=== PATIENT | male | born 1960 | race Caucasian/White ===

== ENCOUNTER 2020-12-31 18:24 | Emergency (ER) | payer SELFPAY ==
[2020-12-31 18:22] VITALS: BP 146/79; PULSE 82; RESP 16; TEMP 36.3; O2SAT 99
--- NOTE | 2020-12-31 19:09 | PC.NURSE ---
This RN walked on to floor to start shift. Was informed by admin secretary that pt in room 13 needed to use restroom. This RN entered room and witnessed pt sitting on edge of stretcher with seizure precautions in place. Pt stated take this IV out right now. My is going to come get [place]. I've also got to use the bathroom really bad. This RN took pts IV out and gave verbal directions to restroom. Pt ambulated to bathroom with steady gait, in no obvious distress. When pt was back in room, this RN educated pt of risks of leaving before seeing ED provider and the benefits of staying. Pt verbalized understanding and ambulated to waiting room to wait for ride.
== END 2020-12-31 19:29 | disposition left against medical advice (07) ==
LOC: ANHED 19:22
PROVIDERS: Emergency Provider Emergency Medicine
DX: R42 Dizziness and giddiness (principal)
CPT/HCPCS: 99199

== ENCOUNTER 2024-12-14 00:17 | Emergency (ER) | payer OTHER, SELFPAY ==
--- NOTE | ~2024-12-14 | CT_ITS ---
EXAMINATION: CT abdomen pelvis wo con DATE: 12/14/2024 01:11 INDICATION: Left flank pain TECHNIQUE: Computed tomography (CT) of the abdomen and pelvis was performed without intravenous contrast. The dose-length product was 632.32 mGy-cm. Automated exposure control and iterative reconstruction technique were employed. COMPARISON: 01/01/2006 FINDINGS: There are interstitial changes of the right middle lobe, likely chronic. Heart size normal. No significant pleural or pericardial effusion. The liver, spleen, pancreas, adrenal glands and right kidney are unremarkable. There is a 4.5 cm exophytic left renal cyst. There is focal renal arterial calcification. No renal stone. No ureteral stone or hydronephrosis. Gallbladder is present. Nonobstructive bowel gas pattern. Normal appendix. There is mild- moderate lower thoracic and lumbar spondylosis. There is severe osteoarthritis of the hips. There is levocurvature of the lumbar spine. Nonobstructive bowel gas pattern. No lymphadenopathy. No abnormal pelvic masses or fluid collections. IMPRESSION: 1. No acute abdominal abnormality. Reviewed, dictated and finalized at location O.
[2024-12-14 00:19] VITALS: BP 156/94; PULSE 77; RESP 18; TEMP 36.6; O2SAT 100
--- NOTE | 2024-12-14 00:35 | ED.MALEGU ---
HPI - Male Genitourinary General Chief complaint: Urogenital-Male <Lachelle Reyes APRN - Last Filed: 12/14/24 03:08> Stated complaint: L FLANK PAIN; HX OF KIDNEY STONES <Lachlele Reyes APRN - Last Filed: 12/14/24 03:08> Time Seen by Provider: 12/14/24 03:13 <Lachelle Reyes APRN - Last Filed: 12/14/24 03:08> History of Present Illness HPI Narrative: Patient is a 64-year-old male who presents with left flank pain that started approximately 5 hours ago. He reports the pain starts on his left side and goes down into his left groin. Patient sources a history of diabetes, high blood pressure, and kidney stones. He denies any urinary symptoms, recent fevers, diarrhea. Patient reports he does not take insulin, but takes metformin to treat his diabetes. <Lachelle Reyes APRN - Last Filed: 12/14/24 03:08> Related Data Home medications: Home Medications ?Medication ?Instructions ?Recorded ?Confirmed ?Last Taken ?Type Unable to Obtain Home Medications 12/31/20 12/31/20 Unknown History <Lachelle Reyes APRN - Last Filed: 12/14/24 03:08> Allergies/Adverse reactions: Allergies Allergy/AdvReac Type Severity Reaction Status Date / Time No Known Allergies Allergy Verified 12/31/20 18:33 <Lachelle Reyes APRN - Last Filed: 12/14/24 03:08> Review of Systems Review of Systems: All systems reviewed & are unremarkable except as noted in HPI and below <Lachelle Reyes APRN - Last Filed: 12/14/24 03:08> Exam Narrative: GENERAL: Well appearing, well-nourished, non-toxic, in acute distress d/t pain. HEAD: Normocephalic, atraumatic. NECK: Supple. No adenopathy, no masses. RESPIRATORY: Airway patent, respirations nonlabored. Clear to auscultation bilaterally, no rales, rhonchi, wheezing. CARDIOVASCULAR: Regular rate and rhythm without murmurs, rubs, or gallops. Peripheral pulses 2+ and equal bilaterally. + L CVA tenderness ABDOMINAL: Soft, LLQ tender, nondistended, no hepatosplenomegaly. Normoactive BS. MUSCULOSKELETAL: Moves all extremities. Strength/ROM intact without gross deformities. SKIN: Warm, dry, normal color. No rashes. NEURO: A&O X3. Speech clear. Cranial nerves II-XII intact. No ataxic movements. PSYCHIATRIC: Anxious. <Lachelle Reyes APRN - Last Filed: 12/14/24 03:08> Course DEAF/HARD OF HEARING SPECIALIST/PA Physician Supervision This visit was performed by both a physician and an APC. For this patient encounter, I reviewed the DEAF/HARD OF HEARING SPECIALIST or PA documentation, treatment plan, and medical decision making and had [id number] time with this patient. I performed all aspects of the MDM as documented. <Kristin Wen MD - Last Filed: 12/14/24 03:22> Vital Signs Vital signs: Vital Signs Temperature 97.8 F 12/14/24 00:19 Pulse Rate 77 12/14/24 00:19 Respiratory Rate 18 12/14/24 00:19 Blood Pressure 156/94 H 12/14/24 00:19 Pulse Oximetry 100 12/14/24 00:19 Oxygen Delivery Room Air 12/14/24 00:19 Temperature 97.8 F 12/14/24 00:19 Pulse Rate 77 12/14/24 00:19 Respiratory Rate 18 12/14/24 00:19 Blood Pressure 156/94 H 12/14/24 00:19 Pulse Oximetry 100 12/14/24 00:19 Oxygen Delivery Room Air 12/14/24 00:19 <Lachelle Reyes APRN - Last Filed: 12/14/24 03:08> Vital Signs Temperature 97.8 F 12/14/24 00:19 Pulse Rate 77 12/14/24 00:19 Respiratory Rate 18 12/14/24 00:19 Blood Pressure 156/94 H 12/14/24 00:19 Pulse Oximetry 100 12/14/24 00:19 Oxygen Delivery Room Air 12/14/24 00:19 Temperature 97.8 F 12/14/24 00:19 Pulse Rate 77 12/14/24 00:19 Respiratory Rate 18 12/14/24 00:19 Blood Pressure 156/94 H 12/14/24 00:19 Pulse Oximetry 100 12/14/24 00:19 Oxygen Delivery Room Air 12/14/24 00:19 <Kristin Wen MD - Last Filed: 12/14/24 03:22> MDM - Male Genitourinary [facility] Narrative Medical decision making narrative: Patient is a 64-year-old male who presents with left flank pain that started approximately 5 hours ago. He reports the pain starts on his left side and goes down into his left groin. Patient sources a history of diabetes, high blood pressure, and kidney stones. He denies any urinary symptoms, recent fevers, diarrhea. Patient reports he does not take insulin, but takes metformin to treat his diabetes. Labs Ordered: CBC, CMP, UA Imaging Ordered: CT abdomen pelvis Medications Ordered: 1 L normal saline IV bolus, Dilaudid 0.5 mg IV Results: Patient's CBC was unremarkable for any acute abnormalities. His chemistry indicated a sodium of 131, creatinine of 0.62, and glucose of 247. Patient's urinalysis shows 3+ glucose. 0300- [facility] signed out to Dr. Wen pending CT scan. <Lachelle Reyes APRN - Last Filed: 12/14/24 03:08> Patient is a 64-year-old male who presents with left flank pain that started approximately 5 hours ago. He reports the pain starts on his left side and goes down into his left groin. Patient sources a history of diabetes, high blood pressure, and kidney stones. He denies any urinary symptoms, recent fevers, diarrhea. Patient reports he does not take insulin, but takes metformin to treat his diabetes. [place]: Patient signed out to me pending CT results. CT abdomen pelvis without IV contrast were obtained at this time and independently interpreted by me revealing no obstructive uropathy, no acute process. Patient was informed of these findings at bedside. Patient was informed that his pain could be likely to musculoskeletal strain. He was administered additional 15 mg of IV Toradol and a Lidoderm patch at this time. Patient was instructed to follow up with his primary care physician /urologist within the next 3-5 days. Provided strict return precautions instructed to return to emergency department if any new or worsening symptoms develop. Discharged home in stable condition. <Kristin Wen MD - Last Filed: 12/14/24 03:22> Differential Diagnosis Differential diagnosis: Likely urinary tract infection and other (Kidney stone, hyperglycemia) <Lachelle Reyes APRN - Last Filed: 12/14/24 03:08> Likely urinary tract infection and other ( Kidney stones) <Kristin Wen MD - Last Filed: 12/14/24 03:22> Medical Records Attestation: I reviewed the patient's medical records. <Kristin Wen MD - Last Filed: 12/14/24 03:22> Lab Data Attestation: I reviewed the patient's lab results. <Lachelle Reyes APRN - Last Filed: 12/14/24 03:08> I reviewed the patient's lab results. <Kristin Wen MD - Last Filed: 12/14/24 03:22> Result diagrams: 12/14/24 00:32 12/14/24 00:32 <Lachelle Reyes APRN - Last Filed: 12/14/24 03:08> Labs: Lab Results 12/14/24 12/14/24 Range/Units 00:32 01:15 WBC 7.9 (4.5-10.0) K/mm3 RBC 4.48 L (4.6-6.20) M/mm3 Hgb 14.0 (14.0-18.0) g/dL Hct 40.4 L (42.0-52.0) % MCV 90.2 (80-100) fl MCH 31.3 (26-34) pg MCHC 34.7 (32-36) g/dl RDW 11.9 (11.5-14.5) % Plt Count 223 (150-375) k/mm3 MPV 9.3 (7.4-10.4) fl Immature Gran % (Auto) 0.1 (0-0.5) % Neut % (Auto) 59.2 (45.5-73.1) % Lymph % (Auto) 30.8 (18.3-44.2) % [place] % (Auto) 8.2 (2.6-8.5) % Eos % (Auto) 1.3 (0-4.4) % Baso % (Auto) 0.4 (0.2-1.2) % Lymph # (Auto) 2.43 (0.9-3.2) K/mm3 [place] # (Auto) 0.7 H (0.1-0.6) K/mm3 Eos # (Auto) 0.1 (0-0.3) K/mm3 Baso # (Auto) 0.0 (0.0-0.1) K/mm3 Abs Immat Gran (auto) 0.01 (0.00-0.031) K/mm3 Absolute Neuts (auto) 4.7 (1.3-6.7) K/mm3 Absolute Nucleated RBC 0.000 (0.0-0.012) K/mm3 Nucleated RBC % 0.0 (0.0-0.2) % Sodium 131 L (137-145) mmol/L Potassium 3.8 (3.4-5.0) mmol/L Chloride 99 (98-107) mmol/L Carbon Dioxide 24 (22-30) mmol/L Anion Gap 8 (4-12) mmol/L BUN 16 (9-20) mg/dL Creatinine 0.62 L (0.7-1.3) mg/dL Estim Creat Clear Calc 116 ml/min Estimated GFR > 60 (59 - ) Glucose 247 H (65-110) mg/dL Calcium 9.1 (8.4-10.2) mg/dL Total Bilirubin 0.4 (0.2-1.3) mg/dL AST 25 (17-59) U/L ALT 26 (6-50) U/L Alkaline Phosphatase 86 (38-126) U/L Total Protein 7.4 (6.3-8.2) g/dL Albumin 3.9 (3.5-5.1) g/dL Urine Color Yellow (Yellow) Urine Appearance Clear (Clear) Urine pH 6.5 (5.0-9.0) Ur Specific [place] 1.026 (1.001-1.035) Urine Protein Negative (Negative) mg/dL Urine Glucose (UA) 3+ H (Negative) mg/dL Urine Ketones Negative (Negative) mg/dL Ur Blood (Man) Negative (Negative) Urine Nitrate Negative (Negative) Urine Bilirubin Negative (Negative) Urine Urobilinogen 0.2 (<2.0) mg/dL Leukocyte Esterase Rfl Negative (Negative) COURTNEY/UL <Lachelle Reyes, FIREARMS INSTRUCTOR - Last Filed: 12/14/24 03:08> Lab Results 12/14/24 12/14/24 Range/Units 00:32 01:15 WBC 7.9 (4.5-10.0) K/mm3 RBC 4.48 L (4.6-6.20) M/mm3 Hgb 14.0 (14.0-18.0) g/dL Hct 40.4 L (42.0-52.0) % MCV 90.2 (80-100) fl MCH 31.3 (26-34) pg MCHC 34.7 (32-36) g/dl RDW 11.9 (11.5-14.5) % Plt Count 223 (150-375) k/mm3 MPV 9.3 (7.4-10.4) fl Immature Gran % (Auto) 0.1 (0-0.5) % Neut % (Auto) 59.2 (45.5-73.1) % Lymph % (Auto) 30.8 (18.3-44.2) % [place] % (Auto) 8.2 (2.6-8.5) % Eos % (Auto) 1.3 (0-4.4) % Baso % (Auto) 0.4 (0.2-1.2) % Lymph # (Auto) 2.43 (0.9-3.2) K/mm3 [place] # (Auto) 0.7 H (0.1-0.6) K/mm3 Eos # (Auto) 0.1 (0-0.3) K/mm3 Baso # (Auto) 0.0 (0.0-0.1) K/mm3 Abs Immat Gran (auto) 0.01 (0.00-0.031) K/mm3 Absolute Neuts (auto) 4.7 (1.3-6.7) K/mm3 Absolute Nucleated RBC 0.000 (0.0-0.012) K/mm3 Nucleated RBC % 0.0 (0.0-0.2) % Sodium 131 L (137-145) mmol/L Potassium 3.8 (3.4-5.0) mmol/L Chloride 99 (98-107) mmol/L Carbon Dioxide 24 (22-30) mmol/L Anion Gap 8 (4-12) mmol/L BUN 16 (9-20) mg/dL Creatinine 0.62 L (0.7-1.3) mg/dL Estim Creat Clear Calc 116 ml/min Estimated GFR > 60 (59 - ) Glucose 247 H (65-110) mg/dL Calcium 9.1 (8.4-10.2) mg/dL Total Bilirubin 0.4 (0.2-1.3) mg/dL AST 25 (17-59) U/L ALT 26 (6-50) U/L Alkaline Phosphatase 86 (38-126) U/L Total Protein 7.4 (6.3-8.2) g/dL Albumin 3.9 (3.5-5.1) g/dL Urine Color Yellow (Yellow) Urine Appearance Clear (Clear) Urine pH 6.5 (5.0-9.0) Ur Specific [place] 1.026 (1.001-1.035) Urine Protein Negative (Negative) mg/dL Urine Glucose (UA) 3+ H (Negative) mg/dL Urine Ketones Negative (Negative) mg/dL Ur Blood (Man) Negative (Negative) Urine Nitrate Negative (Negative) Urine Bilirubin Negative (Negative) Urine Urobilinogen 0.2 (<2.0) mg/dL Leukocyte Esterase Rfl Negative (Negative) COURTNEY/UL <Kristin Wen MD - Last Filed: 12/14/24 03:22> Imaging Data Attestation: I personally reviewed and interpreted this imaging study as follows: <Kristin Wen MD - Last Filed: 12/14/24 03:22> Discharge Plan Discharge Clinical Impression: Acute left flank pain <Lachelle Reyes APRN - Last Filed: 12/14/24 03:08> Patient Disposition: Home <Lachelle Reyes APRN - Last Filed: 12/14/24 03:08> Condition: Improved <Lachelle Reyes APRN - Last Filed: 12/14/24 03:08> Instructions: Antibiotic Form, Flank Pain (ED) <Lachelle Reyes APRN - Last Filed: 12/14/24 03:08> Additional Instructions: Please follow-up with your family doctor/urologist within the next 3-5 days. Return to ED if any new or worsening symptoms develop. <Lachelle Reyes APRN - Last Filed: 12/14/24 03:08> Patient Language: Turkmen <Lachelle Reyes APRN - Last Filed: 12/14/24 03:08> Prescriptions: No Action Unable to Obtain Home Medications <Lachelle Reyes APRN - Last Filed: 12/14/24 03:08> Follow-up/Referrals: Fariba Palmer MD [Physician, Urology] - 3 Days PHYSICIAN NOT ON STAFF,NONSTAFF [Non-Staff] <Lachelle Reyes APRN - Last Filed: 12/14/24 03:08> Time of Disposition: 03:21 <Lachelle Reyes APRN - Last Filed: 12/14/24 03:08> 03:21 <Kristin Wen MD - Last Filed: 12/14/24 03:22>
[2024-12-14 00:37] LABS: Hematocrit 40.4 % (42.0-52.0); Hemoglobin 14.0 g/dL (14.0-18.0); Immature Granulocyte Percent A 0.1 % (0-0.5); Lymphocytes Absolute Auto 2.43 K/mm3 (0.9-3.2); Mean Corpuscular HGB Conc 34.7 g/dl (32-36); Mean Corpuscular Hemoglobin 31.3 pg (26-34); Mean Corpuscular Volume 90.2 fl (80-100); Nucleated Red Blood Cells Absolute Auto 0.000 K/mm3 (0.0-0.012); Nucleated Red Blood Cells Perc 0.0 % (0.0-0.2); Platelet Count Result 223 k/mm3 (150-375); Red Blood Count 4.48 M/mm3 (4.6-6.20); White Blood Count 7.9 K/mm3 (4.5-10.0)
[2024-12-14] MEDS: SODIUM CHLORIDE 0.9% IV 1,000 ML 999 ML IV CONT (00:41)
[2024-12-14] MEDS: HYDROmorphone HCL INJ (*CRX) 1 MG/ML SYR 0.5 MG IV PUSH (00:41)
[2024-12-14 00:51] LABS: Alanine Aminotransferase 26 U/L (6-50); Albumin Level 3.9 g/dL (3.5-5.1); Alkaline Phosphatase 86 U/L (38-126); Anion Gap 8 mmol/L (4-12); Aspartate Amino Transferase 25 U/L (17-59); Bilirubin,Total 0.4 mg/dL (0.2-1.3); Blood Urea Nitrogen 16 mg/dL (9-20); Calcium 9.1 mg/dL (8.4-10.2); Carbon Dioxide 24 mmol/L (22-30); Chloride 99 mmol/L (98-107); Estimated CRCL calculation 116 ml/min; Estimated Glomerular Filt Rate > 60; Glucose 247 mg/dL (65-110); Potassium 3.8 mmol/L (3.4-5.0); Sodium 131 mmol/L (137-145); Total Protein 7.4 g/dL (6.3-8.2)
[2024-12-14 01:25] LABS: Add Urine Microscopic? NO; Appearance Urine Clear (Clear); Glucose Urine UA 3+ mg/dL (Negative); Leukocyte Esterase Ur Negative LEU/UL (Negative); Nitrate Urine Negative (Negative); Specific Grav Ur 1.026 (1.001-1.035)
[2024-12-14] MEDS: KETOROLAC 15 MG/ML VIAL (*BKC) IV PUSH (03:27)
[2024-12-14 03:38] VITALS: BP 165/94; PULSE 76; RESP 18; O2SAT 100
--- NOTE | 2024-12-14 08:37 | PCCCNOTE ---
Provided a cab voucher for the pt to home. His , he has no friends/family in the area, his wallet is at home and needs a hip replacement. Also no [employer] bus runs this route.-adeline
== END 2024-12-14 03:47 | disposition home or self-care (01) ==
PROVIDERS: Registered Nurse; Emergency Provider Emergency Medicine
DX: R10.9 Unspecified abdominal pain (principal); E11.9 Type 2 diabetes mellitus without complications; I10 Essential (primary) hypertension; Z87.442 Personal history of urinary calculi
CPT/HCPCS: 36415; 74176; 80053; 81003; 85025; 96361; 96374; 96375; 99284; J1171; J1885; J7030